=== PATIENT | female | born 1955 | race Hispanic/Latino ===

== ENCOUNTER → 2019-05-01 | Outpatient (CLI) | payer OTHER | END | disposition home or self-care (01) | LOC: RAH 10:25 | PROVIDERS: ATTEND Internal Medicine Cardiovascular Disease | DX: I73.9 Peripheral vascular disease, unspecified (principal) | CPT/HCPCS: 93922 ==

== ENCOUNTER → 2021-06-09 | Outpatient (CLI) | payer MEDICARE | END | disposition home or self-care (01) | LOC: OIH 12:51 | PROVIDERS: ATTEND Internal Medicine Cardiovascular Disease | DX: I25.10 Atherosclerotic heart disease of native coronary artery without angina pectoris (principal) | CPT/HCPCS: 93880 ==

== ENCOUNTER → 2022-10-04 | Outpatient (CLI) | payer OTHER | END | disposition home or self-care (01) | LOC: RAH 12:51 | PROVIDERS: ATTEND Internal Medicine Cardiovascular Disease | DX: Z13.6 Encounter for screening for cardiovascular disorders (principal); I51.5 Myocardial degeneration | CPT/HCPCS: 75571 ==

== ENCOUNTER → 2022-12-12 | Outpatient (CLI) | payer MEDICARE ==
[2022-12-12 12:52] LABS: CHOLESTEROL 137 mg/dL (<200); HDL CHOLESTEROL 66 mg/dL (35-85); LDL DIRECT 68 mg/dL (0-99); TRIGLYCERIDES 50 mg/dL (30-200)
== END | disposition home or self-care (01) ==
LOC: LAB 08:45
PROVIDERS: ATTEND Internal Medicine Cardiovascular Disease
DX: E78.5 Hyperlipidemia, unspecified (principal)
CPT/HCPCS: 36415; 80061

== ENCOUNTER → 2023-04-16 | Outpatient (CLI) | payer MEDICARE | END | disposition home or self-care (01) | LOC: RAH 09:29 | PROVIDERS: ATTEND Internal Medicine Cardiovascular Disease | DX: N28.89 Other specified disorders of kidney and ureter (principal); R10.11 Right upper quadrant pain | CPT/HCPCS: 76700 ==

== ENCOUNTER → 2023-09-30 | Outpatient (CLI) | payer MEDICARE ==
[2023-09-30 12:32] LABS: CREATININE 0.5 mg/dL (0.5-1.0); POTASSIUM 4.3 mmol/L (3.5-5.1)
== END | disposition home or self-care (01) ==
LOC: LAB 09:30
PROVIDERS: ATTEND Internal Medicine Cardiovascular Disease
DX: I50.22 Chronic systolic (congestive) heart failure (principal)
CPT/HCPCS: 36415; 80048

== ENCOUNTER → 2023-11-11 | Outpatient (CLI) | payer MEDICARE | END | disposition home or self-care (01) | LOC: SHCH 08:28 | PROVIDERS: ATTEND Internal Medicine Cardiovascular Disease | DX: I08.8 Other rheumatic multiple valve diseases (principal); I11.0 Hypertensive heart disease with heart failure; I50.22 Chronic systolic (congestive) heart failure; E78.5 Hyperlipidemia, unspecified | CPT/HCPCS: 93306 ==

== ENCOUNTER → 2023-12-25 | Outpatient (CLI) | payer OTHER | END | disposition home or self-care (01) | LOC: RAH 12:57 | PROVIDERS: ATTEND Internal Medicine Cardiovascular Disease | DX: Z13.6 Encounter for screening for cardiovascular disorders (principal); R93.1 Abnormal findings on diagnostic imaging of heart and coronary circulation | CPT/HCPCS: 75571 ==

== ENCOUNTER 2024-01-02 20:29 | Observation (INO) | payer MEDICARE, OTHER ==
[~2024-01-02] VITALS: Ht 152.4 cm; Wt 47.6 kg
[2024-01-02] MEDS: ACETAMINOPHEN 500 MG TABLET PO ONE (22:31)
[2024-01-02] MEDS ORDERED: ACETAMINOPHEN 325 MG TAB PO PRN ×2 (23:00)
[2024-01-02] MEDS ORDERED: MORPHINE 4 MG SYG IV PRN (23:00)
[2024-01-02] MEDS ORDERED: ONDANSETRON 4MG INJ IV PRN (23:00)
[2024-01-02 23:16] LABS: ADD UA MICROSCOPIC YES; APPEARANCE,URINE CLEAR (CLEAR); BILIRUBIN,URINE NEGATIVE (NEGATIVE); COLOR,URINE COLORLESS (YELLOW); GLUCOSE, URINE (UA) >=1000 mg/dL (NEGATIVE); KETONES,URINE NEGATIVE (NEGATIVE); LEUKOCYTE ESTERASE ,URINE NEGATIVE Leu/uL (NEGATIVE); NITRATE,URINE NEGATIVE (NEGATIVE); PH,URINE 6.5 (5.0-8.0); PROTEIN,URINE NEGATIVE (NEGATIVE); UROBILINOGEN,URINE 0.2 mg/dL (0.2-1.0)
[2024-01-02 23:17] LABS: MUCUS,URINE RARE LPF (None Seen); WBC,URINE 0-1 /HPF (0-1)
[2024-01-02 23:24] LABS: BASOPHILS # (AUTO) 0.08 K/uL (0.00-0.20); BASOPHILS % (AUTO) 0.9 % (0.0-5.0); EOSINOPHILS % (AUTO) 1.2 % (0.0-8.0); HEMATOCRIT 37.6 % (36-48); IMMATURE GRANULOCYTE ABSOLUTE 0.03 K/uL (0-1); LYMPHOCYTES # (AUTO) 1.6 K/uL (1.0-4.8); MEAN CORPUSCULAR HEMOGLOBIN 26.6 pg (27.0-33.0); MEAN CORPUSCULAR HGB CONC 31.6 g/dL (32.0-36.0); MEAN CORPUSCULAR VOLUME 84.1 fL (79-99); MONOCYTES # (AUTO) 0.5 K/uL (0.1-1.0); MONOCYTES % (AUTO) 5.9 % (3.0-13.0); NEUTROPHILS # (AUTO) 6.3 K/uL (1.8-7.7); NEUTROPHILS % (AUTO) 73.7 % (40.0-77.0); PLATELET COUNT (AUTO) 309 K/uL (130-400); RED BLOOD CELL COUNT(AUTO) 4.47 MIL/uL (4.00-5.50); RED CELL DISTRIBUTION WIDTH 22.4 % (11.0-15.5); WHITE BLOOD COUNT (AUTO) 8.6 K/uL (4.8-10.8)
[2024-01-02] MEDS: ASPIRIN 81MG CHEW TAB PO ONE (23:34)
[2024-01-02 23:39] LABS: HEMOGLOBIN A1C 6.1 % (4.0-6.0)
[2024-01-02 23:43] LABS: INR 1.06 (0.85-1.15); PROTHROMBIN TIME 11.4 SEC (9.6-11.6)
[2024-01-02 23:44] LABS: B-TYPE NATRIURETIC PEPTIDE 25 pg/mL (0-100); PARTIAL THROMBOPLASTIN TIME 27.2 SEC (26.3-35.5)
[2024-01-02 23:46] LABS: ALBUMIN 3.9 g/dL (3.5-5.0); BILIRUBIN,TOTAL 0.2 mg/dL (0.2-1.0); CREATININE 0.5 mg/dL (0.5-1.0); MAGNESIUM 1.8 mg/dL (1.80-2.40); PHOSPHORUS 4.1 mg/dL (2.5-4.9); POTASSIUM 3.8 mmol/L (3.5-5.1); TOTAL PROTEIN, SERUM 7.6 g/dL (6.0-8.3)
[2024-01-02] MEDS: LACTATED RINGERS 1000ML 1,000 ML IV SCH (23:50)
[2024-01-02] MEDS: ENOXAPARIN SODIUM 60 MG/0.6 ML SQ ONE (23:51)
[2024-01-02] MEDS: ASPIRIN 325MG TAB PO ONE (23:51)
[2024-01-02] MEDS: NITROGLYCERIN 1GM OINT 1 INCH/1GM TD SCH (23:51)
[2024-01-03] VITALS (14 sets, daily range): BP systolic 88–153; BP diastolic 34–101; PULSE 59–72; RESP 12–25; O2SAT 97–98
[2024-01-03 06:24] LABS: BASOPHILS # (AUTO) 0.07 K/uL (0.00-0.20); BASOPHILS % (AUTO) 1.2 % (0.0-5.0); EOSINOPHILS % (AUTO) 1.7 % (0.0-8.0); HEMATOCRIT 35.6 % (36-48); IMMATURE GRANULOCYTE ABSOLUTE 0.01 K/uL (0-1); LYMPHOCYTES # (AUTO) 1.6 K/uL (1.0-4.8); LYMPHOCYTES % (AUTO) 26.3 % (21.0-51.0); MEAN CORPUSCULAR HEMOGLOBIN 26.7 pg (27.0-33.0); MEAN CORPUSCULAR HGB CONC 31.7 g/dL (32.0-36.0); MEAN CORPUSCULAR VOLUME 84.2 fL (79-99); MONOCYTES # (AUTO) 0.4 K/uL (0.1-1.0); MONOCYTES % (AUTO) 6.9 % (3.0-13.0); NEUTROPHILS # (AUTO) 3.8 K/uL (1.8-7.7); NEUTROPHILS % (AUTO) 63.7 % (40.0-77.0); PLATELET COUNT (AUTO) 309 K/uL (130-400); RED BLOOD CELL COUNT(AUTO) 4.23 MIL/uL (4.00-5.50); RED CELL DISTRIBUTION WIDTH 22.3 % (11.0-15.5)
[2024-01-03 06:31] LABS: CREATININE 0.6 mg/dL (0.5-1.0); POTASSIUM 4.1 mmol/L (3.5-5.1)
[2024-01-03] MEDS: INSULIN HUMULIN R 100 UNIT/ML 3ML SQ SCH (07:30)
[2024-01-03] MEDS: ASPIRIN 81MG CHEW TAB PO SCH (08:21)
[2024-01-03] MEDS: LOSARTAN 25 MG TABLET PO SCH (08:21)
[2024-01-03] MEDS: FAMOTIDINE 20MG VIAL IV SCH (08:21)
[2024-01-03] MEDS ORDERED: MORPHINE 2 MG SYG IV PRN (09:00)
[2024-01-03] MEDS ORDERED: MAGNESIUM 2GM PREMIX 50ML 50 ML IV SCH (09:00)
[2024-01-03] MEDS ORDERED: DILTIAZEM 120MG SR CAP PO SCH (09:00)
[2024-01-03] MEDS: MAGNESIUM 2GM PREMIX 50ML 50 ML IV ONE (09:07)
[2024-01-03] MEDS: IRON SUCROSE COMPLEX 100 MG/5 ML VIAL IV ONE (09:07)
[2024-01-03] MEDS ORDERED: LIDOCAINE HCL 400MG/20ML VIAL ONE (12:50)
[2024-01-03] MEDS ORDERED: IOHEXOL 350 MG/ML 100ML INFUS..BTL IV ONE (12:50)
[2024-01-03] MEDS ORDERED: NITROGLYCERIN 50MG VIAL ONE (12:50)
[2024-01-03] MEDS ORDERED: FENTANYL CITRATE PF 50 MCG/1 ML 2ML VIAL ONE (13:10)
[2024-01-03] MEDS ORDERED: MIDAZOLAM HCL 1 MG/ML 2ML VIAL ONE (13:10)
[2024-01-03] MEDS ORDERED: BIVALIRUDIN 250 MG/VIAL IV ONE (13:37)
[2024-01-03] MEDS ORDERED: IOHEXOL-350 50ML VIAL IV ONE (13:45)
[2024-01-03] MEDS ORDERED: LABETALOL 20MG VIAL ONE (14:05)
[2024-01-03] MEDS ORDERED: DEXTROSE 50%-WATER 50 ML DISP.SYRIN IV PRN (14:30)
[2024-01-03] MEDS ORDERED: GLUCAGON 1MG KIT 1 MG ML IM PRN (14:30)
[2024-01-03] MEDS: 0.9%NACL 1000ML 1,000 ML IV SCH (15:12)
[2024-01-03] MEDS ORDERED: ATORVASTATIN 40 MG TABLET PO SCH (21:00)
[2024-01-03] MEDS ORDERED: ENOXAPARIN SODIUM 60 MG/0.6 ML SQ SCH (23:00)
== END 2024-01-03 18:40 | disposition home or self-care (01) ==
LOC: EDH 20:29 → EDHIP 21:11 → INTOOBSV 21:11 → 2BH 01-03 01:20
PROVIDERS: ADMIT Internal Medicine; ATTEND Internal Medicine
DX: I24.9 Acute ischemic heart disease, unspecified (principal); I21.09 ST elevation (STEMI) myocardial infarction involving other coronary artery of anterior wall; I10 Essential (primary) hypertension; E11.9 Type 2 diabetes mellitus without complications; E78.5 Hyperlipidemia, unspecified; D64.9 Anemia, unspecified; I25.2 Old myocardial infarction; Z86.73 Personal history of transient ischemic attack (TIA), and cerebral infarction without residual deficits; Z90.710 Acquired absence of both cervix and uterus; Z79.899 Other long term (current) drug therapy; Z79.82 Long term (current) use of aspirin
CPT/HCPCS: 96375 ×2; 83036; 83735 ×2; 84100; 84484 ×2; 80061; 80053; 83880; 85025 ×2; 85610; 85730; 86850; 86900; 86901; 87040 ×2; 81001; 36415 ×2; 71045; 93005 ×2; 93458; 96365; 96366; 80048; 82948 ×5; J7120; J1650; C1894 ×2; C1760; Q9965 ×2; G0378 ×2; J3475; J3490 ×4; J3010; J2250; J1756; J1644; Q9967 ×2; 99156; 99157; J0583

== ENCOUNTER → 2024-04-01 | Outpatient (CLI) | payer MEDICARE ==
[2024-04-01 12:37] LABS: CHOLESTEROL 123 mg/dL (<200); HDL CHOLESTEROL 58 mg/dL (35-85); LDL DIRECT 50 mg/dL (0-99); TRIGLYCERIDES 58 mg/dL (30-200)
== END | disposition home or self-care (01) ==
LOC: LAB 08:38
PROVIDERS: ATTEND Internal Medicine Cardiovascular Disease
DX: E78.5 Hyperlipidemia, unspecified (principal)
CPT/HCPCS: 36415; 80061